=== PATIENT | female | born 1955 | race Caucasian/White ===

== ENCOUNTER 2017-09-12 13:15 | Emergency (ER) | payer OTHER ==
[~2017-09-12] VITALS: Ht 157.5 cm; Wt 62.1 kg
[~2017-09-12 13:15] MED LIST: CARBAMAZEPINE200 M3; CEFDINIR300 MG PO; ULTRACET PO; VASOTEC20 M1
== END 2017-09-12 17:23 | disposition home or self-care (01) ==
LOC: ER 13:15
DX: K29.70 Gastritis, unspecified, without bleeding (principal)

== ENCOUNTER → 2024-05-22 | Emergency (ER) | payer OTHER ==
[~2024-05-22] VITALS: Ht 165.1 cm; Wt 68.0 kg
[~2024-05-22] MED LIST changes: +AMLODIPINE-OLM1 EAC2 PO; +ARICEPT5 MG PO; +MEMANTINE HCL10 MG PO
== END | disposition left against medical advice (07) ==
LOC: ER 22:03
DX: Z53.21 Procedure and treatment not carried out due to patient leaving prior to being seen by health care provider (principal)

== ENCOUNTER 2025-02-01 08:01 | Outpatient (CLI) | payer OTHER | END 2025-02-01 08:25 | disposition home or self-care (01) | LOC: MAMO-SONO 08:01 | PROVIDERS: ATTEND General Practice | DX: N64.4 Mastodynia (principal); Z12.31 Encounter for screening mammogram for malignant neoplasm of breast ==